=== PATIENT | male | born 1975 | race Caucasian/White ===

== ENCOUNTER 2018-12-30 16:43 | Emergency (ER) | payer SELFPAY ==
[2018-12-30 17:00] VITALS: BP 125/82; PULSE 74; TEMP 98.2; BMI 26.2
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
--- NOTE | 2018-12-31 11:31 | EKG ---
Test Reason : Blood Pressure : / mmHG Vent. Rate : 068 BPM Atrial Rate : 068 BPM P-R Int : 148 ms QRS Dur : 086 ms QT Int : 408 ms P-R-T Axes : 066 041 050 degrees QTc Int : 433 ms NORMAL SINUS RHYTHM NORMAL ECG NO PREVIOUS ECGS AVAILABLE Confirmed by BHAKTI MILLARD, SRIDHAR ([id number]) on 12/31/2018 11:30:48 AM Referred By: Confirmed By:SRIDHAR YA MD
== END 2018-12-30 18:53 | disposition home or self-care (01) ==
LOC: JERFT 16:43
DX: S20.219A Contusion of unspecified front wall of thorax, initial encounter (principal); Y04.2XXA Assault by strike against or bumped into by another person, initial encounter; Y93.89 Activity, other specified; Y92.524 Gas station as the place of occurrence of the external cause; Y99.8 Other external cause status; Y07.9 Unspecified perpetrator of maltreatment and neglect; I10 Essential (primary) hypertension; E05.90 Thyrotoxicosis, unspecified without thyrotoxic crisis or storm; H90.5 Unspecified sensorineural hearing loss
CPT/HCPCS: 71046-TC-FY; 93005; 93010; 99281-25

== ENCOUNTER 2022-06-24 14:41 | Emergency (ER) | payer OTHER ==
[2022-06-24] MEDS ORDERED: ACETAMINOPHEN INJECTION 100 ML IVPB ONE (15:00)
[2022-06-24 15:03] VITALS: BMI 24.5
[2022-06-24] MEDS ORDERED: METOCLOPRAMIDE HCL INJECTION 10 MG/2 ML VIAL IVPUSH ONE (15:04)
[2022-06-24] MEDS ORDERED: ACETAMINOPHEN 1000 MG/100 ML BAG IVPB ONE (15:04)
[2022-06-24] MEDS ORDERED: SODIUM CHLORIDE 1,000 ML IV ONE ×2 (15:04→16:51)
[2022-06-24] MEDS ORDERED: METOCLOPRAMIDE HCL INJECTION 10 MG/2 ML VIAL ONE (15:12)
[2022-06-24 15:38] LABS: HEMATOCRIT 45.2 % (35.4-49); HEMOGLOBIN 15.8 G/dL (11.7-16.9); MCH 31.6 pg (25.7-33.7); MEAN CELL VOLUME 90.2 fl (80-96); MEAN PLT VOLUME 7.5 fl (7.5-11.1); PLATELET COUNT 250.5 10^3/uL (134-434); RBC 5.01 10^6/uL (4.00-5.60); RDW 13.9 % (11.9-15.9); WHITE BLOOD COUNT 13.2 10^3/uL (4.0-10.8)
[2022-06-24 15:44] LABS: ALBUMIN 3.6 g/dl (3.4-5.0); BILIRUBIN,TOTAL 0.6 mg/dl (0.2-1); CALCIUM 8.3 mg/dl (8.5-10); CREATININE 0.9 mg/dl (0.55-1.3); TOT PROT 6.8 g/dl (6.4-8.2)
[2022-06-24 16:04] LABS: PLATELET ESTIMATE ADEQUATE
[2022-06-24 19:18] VITALS: BP 123/72; PULSE 90; RESP 18; TEMP 99
== END 2022-06-24 19:49 | disposition home or self-care (01) ==
LOC: FER 14:41
PROC: 3E033NZ Introduction of Analgesics, Hypnotics, Sedatives into Peripheral Vein, Percutaneous Approach (ICD-10-PCS; principal; 2022-06-24)
PROC: 3E033GC Introduction of Other Therapeutic Substance into Peripheral Vein, Percutaneous Approach (ICD-10-PCS; 2022-06-24)
PROC: 3E0337Z Introduction of Electrolytic and Water Balance Substance into Peripheral Vein, Percutaneous Approach (ICD-10-PCS; 2022-06-24)
DX: K52.9 Noninfective gastroenteritis and colitis, unspecified (principal); R19.7 Diarrhea, unspecified; Z20.822 Contact with and (suspected) exposure to COVID-19
CPT/HCPCS: 0241U-QW; 36415; 70450-TC; 80053; 85027; 99284-25